=== PATIENT | female | born 1955 ===

== ENCOUNTER 2018-07-08 07:31 | Day surgery (SDC) | payer OTHER ==
[2018-07-08 07:52] VITALS: BMI 25.4
[2018-07-08 08:10] VITALS: O2SAT 100
[2018-07-08] MEDS ORDERED: Lactated Ringer's 500 ML IV ONE (12:03)
[2018-07-08] MEDS ORDERED: Propofol 10 mg/ml Inj (20 ML) ONE (12:09)
[2018-07-08 14:19] VITALS: BP 131/66; PULSE 72; RESP 19; TEMP 97.3
== END 2018-07-08 14:00 | disposition home or self-care (01) ==
LOC: C.ENDO 07:31
PROVIDERS: ATTEND Internal Medicine Gastroenterology
DX: Z12.11 Encounter for screening for malignant neoplasm of colon (principal); K64.8 Other hemorrhoids; K57.30 Diverticulosis of large intestine without perforation or abscess without bleeding
CPT/HCPCS: 45378; J2001; J2704; J7120